=== PATIENT | male | born 2000 | race Caucasian/White ===

== ENCOUNTER 2020-11-05 16:25 | Emergency (ER) | payer OTHER ==
--- NOTE | 2020-11-05 18:50 | RAD ---
RIGHT FOREARM TWO VIEWS: 11/05/20 HISTORY: Forearm pain. No injury. There is no signs of fracture or other bony or soft tissue findings. IMPRESSION: Negative right forearm. POS: [facility]
== END 2020-11-05 19:16 | disposition home or self-care (01) ==
LOC: ERS 16:25
DX: M79.631 Pain in right forearm (principal)